=== PATIENT | female | born 1965 | race Caucasian/White ===

== ENCOUNTER → 2025-01-04 | Outpatient (CLI) | payer BC, SELFPAY ==
--- NOTE | 2025-01-04 14:26 | US_ITS ---
PROCEDURE: EXT NON VASC LIMITED/SOFT TISS 01/04/2025 REASON FOR EXAM: PAIN LT AND RT FOOT, NEUROMA RT ANAD LT TECHNIQUE: Ultrasound targeted to the palpable abnormality at the plantar surface of the right foot . COMPARISON: None. FINDINGS: Limited sonogram of the plantar surface of the right foot was performed. No abnormal solid or cystic structure is seen within the visualized area. No definitive palpable lump was reported by the applied technologist. US/Ext Non Vasc Limited/Soft Tiss IMPRESSION: Limited sonogram of the plantar surface of the right foot was performed. No abn ormal solid or cystic structure is seen within the visualized area. No definitive palpable lump was reported by the ultrasound te chnologist. Reading Location: [id number]
--- NOTE | 2025-01-04 14:27 | US_ITS ---
PROCEDURE: EXT NON VASC LIMITED/SOFT TISS 01/04/2025 REASON FOR EXAM: PAIN LT AND RT FOOT, NEUROMA RT ANAD LT TECHNIQUE: Ultrasound targeted to the palpable abnormality at the plantar surface of the left foot. COMPARISON: None. FINDINGS: Targeted sonogram of the plantar surface of the left foot was performed. No palpable lump was reported per the stone layer. No abnormal cystic or solid lesions are seen within the visualized (in the area of concern) on the plantar surface of the left foot. US/Ext Non Vasc Limited/Soft Tiss IMPRESSION: Targeted sonogram of the plantar surface of the left foot was performed. No pal pable lump was reported per the stone layer. No abnormal cystic or solid lesions are seen within the visualized (in the area of concern) on the plantar surface of the left foot. Reading Location: [id number]
== END | disposition home or self-care (01) ==
PROVIDERS: Referring Provider Podiatrist Foot & Ankle Surgery; Visit Provider Podiatrist Foot & Ankle Surgery
DX: M79.672 Pain in left foot (principal); M79.671 Pain in right foot; G57.63 Lesion of plantar nerve, bilateral lower limbs
CPT/HCPCS: 76882

== ENCOUNTER → 2025-02-12 | Outpatient (CLI) | payer BC, SELFPAY ==
[2025-02-12 18:01] LABS: Hepatitis B Surface Antibody Nonreactive
[2025-02-12 18:14] LABS: ALB/GLOB Ratio 1.7 RATIO (0.9-2.4); AST(SGOT) 20 U/L (<=31); Alanine Aminotransfer ALT/SGPT 17 U/L (<=34); Albumin, Serum 4.7 g/dL (3.5-5.0); Alkaline Phosphatase 54 U/L (35-104); Anion Gap 13 (5-15); BUN 20 mg/dL (4-19); BUN/Creat Ratio 24.1 RATIO (10-20); Chloride 101 mmol/L (98-108); Creatinine, Serum 0.81 mg/dL (0.70-1.20); EST Glomerular Filtration Rate 84 (>60); Globulin 2.8 g/dL (2.2-4.2); Glucose 79 mg/dL (70-99); Hepatitis B Surface Antigen Nonreactive (Nonreactive); Hepatitis C Antibody Nonreactive (Nonreactive); Potassium 3.6 mmol/L (3.3-5.1); Protein, Total 7.5 g/dL (5.9-8.4); Sodium Level 139 mmol/L (133-145); Total Bilirubin 0.47 mg/dL (0.00-1.30)
[2025-02-12 18:30] LABS: CRP < 3.00 mg/L (0.0-3.0)
[2025-02-12 18:54] LABS: Absolute Lymphocyte Count 2.17 X10^3/uL (0.83-4.51); Absolute Neutrophil Count 4.1 X10^3/uL (2.0-7.7); Basophil# 0.03 X10^3/uL; Basophil% 0.4 % (0-1); Eosinophils% 1.4 % (0-5); Hematocrit 41.4 % (37-47); Hemoglobin 13.8 g/dL (12.0-15.0); Lymphocyte # 2.17 X10^3/ul (0.83-4.51); Lymphocyte % 31.4 % (19-41); Mean Corp Hgb Conc 33.3 g/dL (32-36); Mean Corpuscular Hgb 29.6 pg (27.0-32.0); Mean Corpuscular Volume 88.7 fL (81-99); Mean Platelet Vol. 10.2 fl (6.2-12.0); Monocyte# 0.47 X10^3/uL; Monocyte% 6.8 % (0-10); NRBC Flagged by Analyzer 0 % (0-5); Neutrophil # 4.13 X10^3/uL (2.7-7.7); Neutrophil % 59.9 % (47-70); Platelet Count 272 K/mm3 (150-450); RBC Distribution Width CV 12.8 % (11.6-14.6); RBC Distribution Width SD 41.3 fl (35.1-43.9); Red Blood Count 4.67 M/mm3 (4.2-5.4); White Blood Count 6.9 K/mm3 (4.4-11.0)
[2025-02-12 18:58] LABS: Erythrocyte Sedimentation Rate 2 mm/hr (0-30)
[2025-02-15 12:08] LABS: ANTINUCLEAR ANTIBODIES DIRECT Negative (Negative)
[2025-02-15 14:08] LABS: CCP IgG Antibodies > 250 units (0-19)
== END | disposition home or self-care (01) ==
LOC: MTLAB 15:10
PROVIDERS: Referring Provider Internal Medicine Rheumatology; Visit Provider Internal Medicine Rheumatology
DX: M05.79 Rheumatoid arthritis with rheumatoid factor of multiple sites without organ or systems involvement (principal)
CPT/HCPCS: 36415; 80053; 85025; 85652; 86038; 86140; 86200; 86431; 86706; 86803; 87340

== ENCOUNTER → 2025-04-30 | Outpatient (CLI) | payer BC, SELFPAY ==
[2025-04-30 17:44] LABS: Hematocrit 40.1 % (37-47); Hemoglobin 13.5 g/dL (12.0-15.0); Immature Granulocytes Count 0.010 X10^3/uL (0.0-0.0); Mean Corp Hgb Conc 33.7 g/dL (32-36); Mean Corpuscular Volume 90.5 fL (81-99); Mean Platelet Vol. 9.9 fl (6.2-12.0); NRBC Flagged by Analyzer 0 % (0-5); Platelet Count 288 K/mm3 (150-450); RBC Distribution Width CV 13.0 % (11.6-14.6); RBC Distribution Width SD 42.6 fl (35.1-43.9); Red Blood Count 4.43 M/mm3 (4.2-5.4); White Blood Count 6.5 K/mm3 (4.4-11.0)
--- OUTSIDE RECORDS SUMMARY | 2025-04-30 18:11 | XMS RPT_ITS | CCD ---
Author Organization [facility] Care Team Providers Care Deputy United [place] Marshal Name Role Phone Leon GUY, Dr. Cam Attending Provider Leon GUY, Dr. Cam Referring Provider Care Physician, No Primary Primary Care Provider Unavailable Unavailable Primary Care Provider Kenna Flaherty MD, Dr. Abbasi Attending Provider Reynold BAEZ, Dr. Abbasi Referring Provider Care Physician, No Primary Primary Care Unava ilAyleen Larson Referring Unavailable Ayleen Flaherty Attending Unavailable Tutu Quintero Referring Unavailable Tutu Quintero Attending Unavailable Care Physician, No Primary Primary Care Unava ilTAMEKA Garcia Attending Unavailable TAMEKA DICKEY Referring Unavailable TAMEKA DICKEY Referring Unavailable Allergies Allergy Classification Reported Allergen(s) Allergy Type Date of Onset Reaction(s) Facility (5 sources) Codeine; Translations: [CODEINE] Drug Allergy 01-15-2025 Other: See Comments [facility] Medications Current Medications Medication Drug Class(es) Dates Sig (Normalized) Sig (Original) cholecalciferol, vitD3,/vit K2 (VITAMIN D3-VITAMIN K2 ORAL) (4 sources) cholecalciferol, vitD3,/vit K2 (VITAMIN D3-VITAMIN K2 ORAL) Take by mouth. Active Ibuprofen (4 sources) Nonsteroidal Anti-inflammatory Drug IBUPROFEN ORAL Ta ke by mouth. Active Magnesium glycinate (4 sources) MAGNESIUM GLYCIN ATE ORAL Take by mouth. Active omega-3s/dha/epa/fis h oil (OMEGA 3 ORAL) (4 sources) omega-3s/dha/epa /fis h oil (OMEGA 3 ORAL) Take 1,200 mg by mouth once daily. Active OTC PRODUCT (4 sources) OTC PRODUCT Tumeric/curcumin Active pyridoxine HCl, vitamin B6, (VITAMIN B-6 ORAL) (4 sources) pyridoxine HCl, vitamin B6, (VITAMIN B-6 ORAL) Take by mouth. Active SELENIUM ORAL (4 sources) SELENIUM ORAL Ta ke by mouth. Active thiamine 250 mg oral tablet (4 sources) thiamine HCl (VITAMIN B-1 ORAL) Take 250 mg by mouth. Active Problems Problem Classification Problem Date Documented Date Episodic/Chronic Menopausal disorders (6 sources) Postmenopausal bleeding; Translations: [Postmenopausal bleeding] Onset: 01-15-2025 01-15-2025 Chronic Other connective tissue disease (1 source) Pain in left foot; Translations: [Pain in left foot] Onset: 02-24-2025 Episodic Other screening for suspected conditions (not mental disorders or infectious disease) (5 sources) Patient encounter status; Translations: [Encounter for screening for malignant neoplasm of cervix] Onset: 01-15-2025 01-15-2025 Episodic Other skin disorders (1 source) Night sweats; Translations: [Generalized hyperhidrosis] 01-15-2025 Episodic Residual codes; unclassified (1 source) Flushing; Translations: [Flushing] 01-15-2025 Episodic Rheumatoid arthritis and related disease (1 source) Rheumatoid arthritis with rheumatoid factor of multiple sites without organ or systems involvement; Translations: [Rheumatoid arthritis with rheumatoid factor of multiple sites without organ or systems involvement] Onset: 02-18-2025 Chronic Unclassified (1 source) Patient encounter status 01-15-2025 Results Test Name Value Interpretation Reference Range Facility US [facility] 03-01-2025 Indication Postmenopausal bleeding Impression Anteverted fibroid uterus that measures 112 mm x 58 mm x 67 mm. The largest fibroids are described below. Fibroid(s): Size 5 mm x 5 mm x 9 mm. Mean 6.2 mm. Vol 0.112 cm . Right lateral anterior wall. intramural Endometrium measures 3.9 mm. Normal endometrial contour. Both ovaries are visualized and appear atrophic. No adnexal masses were observed. There is no free fluid visualized in the peritoneal cavity. Recommendations Follow up as clinically indicated. Menstrual History Cycle: menopausal Method Transabdominal, transvaginal, 3D ultrasound examination, Color Doppler examination. View: Suboptimal view: restricted by increased bowel gas Uterus Uterus: Visualized Uterus position: anteverted Description of uterine malformations: none Myometrium: heterogeneous Endometrium: normal Cervix details: normal Uterus length 112 mm Uterus width 67 mm Uterus height 58 mm Uterus Vol 226.5 cm Endometrial thickness, total 3.9 mm Fibroids: Fibroids identified Uterine fibroid D1 5 mm Uterine fibroid D2 5 mm Uterine fibroid D3 9 mm Uterine fibroid mean 6.2 mm Uterine fibroid vol 0.112 cm Uterine fibroids findings: Right lateral anterior wall. intramural Right Ovary Rt ovary: suboptimal Rt ovary morphology: postmenopausal atrophic Rt ovary D1 12 mm Rt ovary D2 14 mm Rt ovary D3 10 mm Rt ovary Vol 0.9 cm Left Ovary Lt ovary: Visualized Lt ovary morphology: postmenopausal atrophic Lt ovary D1 15 mm Lt ovary D2 16 mm Lt ovary D3 13 mm Lt ovary Vol 1.6 cm Cul de Sac Visualized. no free fluid visualized Performed By: Lilly Stone RDMS Read By: Juanis An M.D. MATERNAL MEDICINE [facility] LESLY SCREENING W TOMOon 02-26 LESLY SCREENING W VIOLA * * *Final Report* * * DATE OF EXAM: Feb 26 2025 9:37AM [facility] 0582 - LESLY SCREENING W VIOLA / PROCEDURE REASON: Encounter for screening mammogram for breast cancer * * * * Physician Interpretation * * * * RESULT: [place] [address] #[id number] - LESLY SCREENING W VIOLA HISTORY: 59 year-old patient presents for screening. Patient is asymptomatic in both breasts. Patient states no personal history of breast cancer. COMPARISON STUDIES: The present examination has been compared to prior imaging studies dated 01/07/2017 (mammogram), 04/30/2019 (mammogram), 06/16/2020 (mammogram), 09/28/2021 (mammogram) and 02/13/2023 (mammogram). MAMMOGRAM TECHNIQUE: The study was acquired using full field digital technology and interpreted from soft copy. Digital Breast Tomosynthesis (DBT) images were obtained and used to assist in the interpretation of this examination. MAMMOGRAM FINDINGS: The breasts are heterogeneously dense, which may obscure small masses. No suspicious masses, calcifications or other abnormalities are seen in either breast. There are no significant interval changes. IMPRESSION: There is no mammographic evidence of malignancy in either breast. Routine screening mammogram is recommended. Annual mammogram will be due in 1 year. BI-RADS Category 1: Negative RISK: Based on the Tyrer-Cuzick (TC) risk assessment model, this patient has a 7.2% lifetime risk of developing breast cancer, meaning they are at average risk for developing breast cancer. However, this is only an estimate based on available history provided on the patient's questionnaire. We encourage all patients to talk with their providers about these results, further recommendations for managing breast health, and appropriate supplemental screening options if the patient has dense breast tissue. Interpreting Radiologist: Arelis Kaufman M.D. Electronically signed on: 03/19/2025 Poultry Picking Machine Tender: BRAD Transcribe Date/Time: Feb 26 2025 9:26A Dictated by: ARELIS KAUFMAN MD This examination was interpreted and the report reviewed and electronically signed by: ARELIS KAUFMAN MD on Mar 19 2025 7:30AM EST [id number] Normal [facility] US [facility] 02-26-2025 Radiology Study observation (narrative) [facility] ANTINUCLEAR ANTIBODIES DIREC Ton 02-15-2025 KEVIN,DIRECT Negative Normal Negative [facility] Comment on above: Result Comment: Perf ormed at: [employer] [id number] Soldering Machine Operator Helper: Boom Narayanan PhD, Phone: [phone] Performed By: #### L 501.6710, L100.0100, L3890.6301, L3890.6102, L101.9900, L505.7010, L500.4050, L4600.0100, L3100.5475, L3890.6202 ####[facility] [id number] [place], [place], [id number] CCP IgG Antibodieson 025 CCP IgG Ab. > 250 High 0-19 [facility] Comment on above: Result Comment: Nega tive <20 Weak positive 20 - 39 Moderate positive 40 - 59 Strong positive >59 Performed at: [employer] [id number] Soldering Machine Operator Helper: Boom Narayanan PhD, Phone: [phone] Performed By: #### L 501.6710, L100.0100, L3890.6301, L3890.6102, L101.9900, L505.7010, L500.4050, L4600.0100, L3100.5475, L3890.6202 ####[facility] [id number] [place], [place], [id number] Absolute lymphocyte countOrd ered By: Ayleen Flaherty on 02-12-2025 Lymphocytes Auto (Unsp spec) [#/Vol] 2.17 10*3/uL 0.83-4.51 [facility] Absolute neutrophil countOrd ered By: Ayleen Flaherty on 02-12-2025 Neutrophils (Bld) [#/Vol] 4.1 10*3/uL 2.0-7.7 [facility] Anion gap in Serum or Plasma Ordered By: Ayleen Flaherty on 02-12-2025 Anion gap [Moles/Vol] 13 mmol/L 5-15 [facility] Automated lymphocyte count a s percentage of total leukocytesOrdered By: Ayleenang Flaherty on 02-12-2025 Lymphocytes/100 WBC Auto (Unsp spec) 31.4 % 19-41 [facility] BUN/creatinine ratioOrdered By: [facility] Reynold on 02-12-2025 Urea nitrogen/Creatinine [Mass ratio] 24.1 mg/mg High 10-20 [facility] Basophil percentageOrdered B y: Ayleen Flaherty on 02-12-2025 Basophils/100 WBC (Bld) 0.4 % 0-1 [facility] Bilirubin, totalOrdered By: Ayleen Flaherty on 02-12-2025 Bilirubin [Mass/Vol] 0.47 mg/dL 0.00-1.30 [facility] CBC W/Diff, Automatedon 01-31 Absolute Lymph 2.17 X10 3/uL Normal 0.83-4.51 [facility] Comment on above: Performed By: #### L 501.6710, L100.0100, L3890.6301, L3890.6102, L101.9900, L505.7010, L500.4050, L4600.0100, L3100.5475, L3890.6202 #### [facility] [address] [place], [place], [id number] (914) Absolute Neut 4.1 X10 3/uL Normal 2.0-7.7 [facility] Comment on above: Performed By: #### L 501.6710, L100.0100, L3890.6301, L3890.6102, L101.9900, L505.7010, L500.4050, L4600.0100, L3100.5475, L3890.6202 #### [facility] [address] [place], [address] (247) Basophils/100 WBC (Bld) 0.4 % Normal 0-1 [facility] Comment on above: Performed By: #### L 501.6710, L100.0100, L3890.6301, L3890.6102, L101.9900, L505.7010, L500.4050, L4600.0100, L3100.5475, L3890.6202 #### [facility] [address] [place], [address] Eosinophils/100 WBC (Bld) 1.4 % Normal 0-5 [facility] Comment on above: Performed By: #### L 501.6710, L100.0100, L3890.6301, L3890.6102, L101.9900, L505.7010, L500.4050, L4600.0100, L3100.5475, L3890.6202 #### [facility] [address] [place], [address] Erythrocyte distribution width (RBC) [Ratio] 12.8 % Normal 11.6-14.6 [facility] Comment on above: Performed By: #### L 501.6710, L100.0100, L3890.6301, L3890.6102, L101.9900, L505.7010, L500.4050, L4600.0100, L3100.5475, L3890.6202 #### [facility] [address] [place], [address] Hematocrit (Bld) [Volume fraction] 41.4 % Normal 37-47 [facility] Comment on above: Performed By: #### L 501.6710, L100.0100, L3890.6301, L3890.6102, L101.9900, L505.7010, L500.4050, L4600.0100, L3100.5475, L3890.6202 #### [facility] [address] [place], [address] Hemoglobin (Bld) [Mass/Vol] 13.8 g/dL Normal 12.0-15.0 [facility] Comment on above: Performed By: #### L 501.6710, L100.0100, L3890.6301, L3890.6102, L101.9900, L505.7010, L500.4050, L4600.0100, L3100.5475, L3890.6202 #### [facility] [address] [place], [address] IG% 0.100 Normal 0.0-0.9 [facility] Comment on above: Result Comment: IG% - Immature Granulocytes (promyelocytes, myelocytes and metamyelocytes) > 1% indicates that a LEFT SHIFT is Present. Performed By: #### L 501.6710, L100.0100, L3890.6301, L3890.6102, L101.9900, L505.7010, L500.4050, L4600.0100, L3100.5475, L3890.6202 #### [facility] [address] [place], [address] Lymphocytes/100 WBC (Bld) 31.4 % Normal 19-41 [facility] Comment on above: Performed By: #### L 501.6710, L100.0100, L3890.6301, L3890.6102, L101.9900, L505.7010, L500.4050, L4600.0100, L3100.5475, L3890.6202 #### [facility] [address] [place], [address] MCH (RBC) [Entitic mass] 29.6 pg Normal 27.0-32.0 [facility] Comment on above: Performed By: #### L 501.6710, L100.0100, L3890.6301, L3890.6102, L101.9900, L505.7010, L500.4050, L4600.0100, L3100.5475, L3890.6202 #### [facility] [address] [place], [address] MCHC (RBC) [Mass/Vol] 33.3 g/dL Normal 32-36 [facility] Comment on above: Performed By: #### L 501.6710, L100.0100, L3890.6301, L3890.6102, L101.9900, L505.7010, L500.4050, L4600.0100, L3100.5475, L3890.6202 #### [facility] [address] [place], [address] MCV (RBC) [Entitic vol] 88.7 fL Normal 81-99 [facility] Comment on above: Performed By: #### L 501.6710, L100.0100, L3890.6301, L3890.6102, L101.9900, L505.7010, L500.4050, L4600.0100, L3100.5475, L3890.6202 #### [facility] [address] [place], [address] Monocytes/100 WBC (Bld) 6.8 % Normal 0-10 [facility] Comment on above: Performed By: #### L 501.6710, L100.0100, L3890.6301, L3890.6102, L101.9900, L505.7010, L500.4050, L4600.0100, L3100.5475, L3890.6202 #### [facility] [address] [place], [address] Neutrophils/100 WBC (Bld) 59.9 % Normal 47-70 [facility] Comment on above: Performed By: #### L 501.6710, L100.0100, L3890.6301, L3890.6102, L101.9900, L505.7010, L500.4050, L4600.0100, L3100.5475, L3890.6202 #### [facility] [address] [place], [place], [id number] (008) Nucleated RBC (Bld) [#/Vol] 0 10*3/uL Normal 0-5 [facility] Comment on above: Performed By: #### L 501.6710, L100.0100, L3890.6301, L3890.6102, L101.9900, L505.7010, L500.4050, L4600.0100, L3100.5475, L3890.6202 #### [facility] [address] [place], [address] Platelet mean volume (Bld) [Entitic vol] 10.2 fL Normal 6.2-12.0 [facility] Comment on above: Performed By: #### L 501.6710, L100.0100, L3890.6301, L3890.6102, L101.9900, L505.7010, L500.4050, L4600.0100, L3100.5475, L3890.6202 #### [facility] [address] [place], [address] Platelets (Bld) [#/Vol] 272 10*3/uL Normal 150-450 [facility] Comment on above: Performed By: #### L 501.6710, L100.0100, L3890.6301, L3890.6102, L101.9900, L505.7010, L500.4050, L4600.0100, L3100.5475, L3890.6202 #### [facility] [address] [place], [place], [id number] (003) RBC (Bld) [#/Vol] 4.67 10*6/uL Normal 4.2-5.4 [facility] Comment on above: Performed By: #### L 501.6710, L100.0100, L3890.6301, L3890.6102, L101.9900, L505.7010, L500.4050, L4600.0100, L3100.5475, L3890.6202 #### [facility] [address] [place], [address] (319) RDW SD 41.3 fl Normal 35.1-43.9 [facility] Comment on above: Performed By: #### L 501.6710, L100.0100, L3890.6301, L3890.6102, L101.9900, L505.7010, L500.4050, L4600.0100, L3100.5475, L3890.6202 #### [facility] [address] [place], [place], [id number] (728) WBC (Bld) [#/Vol] 6.9 10*3/uL Normal 4.4-11.0 [facility] Comment on above: Performed By: #### L 501.6710, L100.0100, L3890.6301, L3890.6102, L101.9900, L505.7010, L500.4050, L4600.0100, L3100.5475, L3890.6202 #### [facility] [address] [place], [address] CRPon 02-12-2025 C-REACTIVE PROT < 3.00 Normal 0.0-3.0 [facility] Comment on above: Performed By: #### L 501.6710, L100.0100, L3890.6301, L3890.6102, L101.9900, L505.7010, L500.4050, L4600.0100, L3100.5475, L3890.6202 #### [facility] [address] [place], [place], [id number] Carbon dioxide, total [Moles /volume] in Central venous bloodOrdered By: Ayleen Flaherty on 02-12-2025 CO2 [Moles/Vol] 25.0 mmol/L 21.0-32.0 [facility] Chloride assayOrdered By: Chris Flaherty on 02-12-2025 Chloride [Moles/Vol] 101 mmol/L 98-108 [facility] Comprehensive Metabolic Prof ilon 02-12-2025 Albumin [Mass/Vol] 4.7 g/dL Normal 3.5-5.0 [facility] Comment on above: Performed By: #### L 501.6710, L100.0100, L3890.6301, L3890.6102, L101.9900, L505.7010, L500.4050, L4600.0100, L3100.5475, L3890.6202 #### [facility] [address] [place], [place], [id number] Albumin/Globulin [Mass ratio] 1.7 {ratio} Normal 0.9-2.4 [facility] Comment on above: Performed By: #### L 501.6710, L100.0100, L3890.6301, L3890.6102, L101.9900, L505.7010, L500.4050, L4600.0100, L3100.5475, L3890.6202 #### [facility] [address] [place], [place], [id number] ALK PHOS 54 U/L Normal 35-104 [facility] Comment on above: Performed By: #### L 501.6710, L100.0100, L3890.6301, L3890.6102, L101.9900, L505.7010, L500.4050, L4600.0100, L3100.5475, L3890.6202 #### [facility] [address] [place], [place], [id number] (039) ALT [Catalytic activity/Vol] 17 U/L Normal <=34 [facility] Comment on above: Performed By: #### L 501.6710, L100.0100, L3890.6301, L3890.6102, L101.9900, L505.7010, L500.4050, L4600.0100, L3100.5475, L3890.6202 #### [facility] [address] [place], [address] AST [Catalytic activity/Vol] 20 U/L Normal <=31 [facility] Comment on above: Performed By: #### L 501.6710, L100.0100, L3890.6301, L3890.6102, L101.9900, L505.7010, L500.4050, L4600.0100, L3100.5475, L3890.6202 #### [facility] [address] [place], [address] Bilirubin [Mass/Vol] 0.47 mg/dL Normal 0.00-1.30 [facility] Comment on above: Performed By: #### L 501.6710, L100.0100, L3890.6301, L3890.6102, L101.9900, L505.7010, L500.4050, L4600.0100, L3100.5475, L3890.6202 #### [facility] [address] [place], [place], [id number] BUN/CRE 24.1 RATIO High 10-20 [facility] Comment on above: Performed By: #### L 501.6710, L100.0100, L3890.6301, L3890.6102, L101.9900, L505.7010, L500.4050, L4600.0100, L3100.5475, L3890.6202 #### [facility] [address] [place], [address] Calcium [Mass/Vol] 10.0 mg/dL Normal 7.6-11.0 [facility] Comment on above: Performed By: #### L 501.6710, L100.0100, L3890.6301, L3890.6102, L101.9900, L505.7010, L500.4050, L4600.0100, L3100.5475, L3890.6202 #### [facility] [address] [place], [place], [id number] (738) Chloride [Moles/Vol] 101 mmol/L Normal 98-108 [facility] Comment on above: Performed By: #### L 501.6710, L100.0100, L3890.6301, L3890.6102, L101.9900, L505.7010, L500.4050, L4600.0100, L3100.5475, L3890.6202 #### [facility] [address] [place], [address] CO2 [Moles/Vol] 25.0 mmol/L Normal 21.0-32.0 [facility] Comment on above: Performed By: #### L 501.6710, L100.0100, L3890.6301, L3890.6102, L101.9900, L505.7010, L500.4050, L4600.0100, L3100.5475, L3890.6202 #### [facility] [address] [place], [address] Creatinine [Mass/Vol] 0.81 mg/dL Normal 0.70-1.20 [facility] Comment on above: Performed By: #### L 501.6710, L100.0100, L3890.6301, L3890.6102, L101.9900, L505.7010, L500.4050, L4600.0100, L3100.5475, L3890.6202 #### [facility] [address] [place], [place], [id number] GAP 13 Normal 5-15 [facility] Comment on above: Performed By: #### L 501.6710, L100.0100, L3890.6301, L3890.6102, L101.9900, L505.7010, L500.4050, L4600.0100, L3100.5475, L3890.6202 #### [facility] [address] [place], [place], [id number] GFR/1.73 sq M.predicted among non-blacks MDRD (S/P/Bld) [Vol rate/Area] 84 mL/min/{1.73_m2} Normal >[address] [facility] Comment on above: Result Comment: mL/m in/1.73m2 CKD-EPI Creatinine Equation (2020) Performed By: #### L 501.6710, L100.0100, L3890.6301, L3890.6102, L101.9900, L505.7010, L500.4050, L4600.0100, L3100.5475, L3890.6202 #### [facility] [address] [place], [place], [id number] Globulin (S) [Mass/Vol] 2.8 g/dL Normal 2.2-4.2 [facility] Comment on above: Performed By: #### L 501.6710, L100.0100, L3890.6301, L3890.6102, L101.9900, L505.7010, L500.4050, L4600.0100, L3100.5475, L3890.6202 #### [facility] [address] [place], [address] Glucose [Mass/Vol] 79 mg/dL Normal 70-99 [facility] Comment on above: Performed By: #### L 501.6710, L100.0100, L3890.6301, L3890.6102, L101.9900, L505.7010, L500.4050, L4600.0100, L3100.5475, L3890.6202 #### [facility] [address] [place], [address] Potassium [Moles/Vol] 3.6 mmol/L Normal 3.3-5.1 [facility] Comment on above: Performed By: #### L 501.6710, L100.0100, L3890.6301, L3890.6102, L101.9900, L505.7010, L500.4050, L4600.0100, L3100.5475, L3890.6202 #### [facility] [address] [place], [address] Sodium [Moles/Vol] 139 mmol/L Normal 133-145 [facility] Comment on above: Performed By: #### L 501.6710, L100.0100, L3890.6301, L3890.6102, L101.9900, L505.7010, L500.4050, L4600.0100, L3100.5475, L3890.6202 #### [facility] [address] [place], [address] T PROT 7.5 g/dL Normal 5.9-8.4 [facility] Comment on above: Performed By: #### L 501.6710, L100.0100, L3890.6301, L3890.6102, L101.9900, L505.7010, L500.4050, L4600.0100, L3100.5475, L3890.6202 #### [facility] [address] [place], [place], [id number] Urea nitrogen [Mass/Vol] 20 mg/dL High 4-19 [facility] Comment on above: Performed By: #### L 501.6710, L100.0100, L3890.6301, L3890.6102, L101.9900, L505.7010, L500.4050, L4600.0100, L3100.5475, L3890.6202 #### [facility] [address] [place], [place], [id number] Eosinophil percentageOrdered By: Ayleen Flaherty on 02-12-2025 Eosinophils/100 WBC (Bld) 1.4 % 0-5 [facility] Erythrocyte Sed Rateon 02-12 SED RATE 2 mm/hr Normal 0-30 [facility] Comment on above: Performed By: #### L 501.6710, L100.0100, L3890.6301, L3890.6102, L101.9900, L505.7010, L500.4050, L4600.0100, L3100.5475, L3890.6202 #### [facility] [address] [place], [place], [id number] Erythrocyte distribution wid th ratioOrdered By: Ayleen Flaherty on 02-12-2025 Erythrocyte distribution width (RBC) [Ratio] 12.8 % 11.6-14.6 [facility] Erythrocyte distribution wid th standard deviationOrdered By: Ayleen Flaherty on 02-12-2025 Erythrocyte distribution width (RBC) [Ratio] 41.3 fl 35.1-43.9 [facility] Erythrocyte sedimentation ra teOrdered By: Ayleen Flaherty on 02-12-2025 ESR (Bld) [Velocity] 2 mm/h 0-30 [facility] Glomerular filtration rate ( GFR) estimation/1.73 sq m using serum, plasma, or whole bOrdered By: Ayleen Flaherty on 02-12-2025 GFR/1.73 sq M.predicted among non-blacks MDRD (S/P/Bld) [Vol rate/Area] 84 mL/min/{1.73_m2} >[address] [facility] Comment on above: mL/min/1.73m2 CKD-EP I Creatinine Equation (2020) Hematocrit Auto (Bld) [Volum e fraction]Ordered By: Ayleen Flaherty on 02-12-2025 Hematocrit (Bld) [Volume fraction] 41.4 % 37-47 [facility] Hemoglobin measurementOrdere d By: Ayleen Flaherty on 02-12-2025 Hemoglobin (Bld) [Mass/Vol] 13.8 g/dL 12.0-15.0 [facility] Hepatitis B Surface Antibody on 02-12-2025 HEP B Surf Ab Non-Reactive Normal [facility] Comment on above: Result Comment: <8.5 mIU/mL: Non-Reactive 8.5<= x <11.5 mIU/mL: Indeterminate >=11.5 mIU/mL: Reactive Non Reactive: Inconsistent with immunity less than <10 mIU/mL Reactive: Consistent with immunity greater than or equal to 10 mIU/mL Performed By: #### L 501.6710, L100.0100, L3890.6301, L3890.6102, L101.9900, L505.7010, L500.4050, L4600.0100, L3100.5475, L3890.6202 #### [facility] [place], [address] Hepatitis C Antibodyon 02-12 Hepatitis C Ab Non-Reactive Normal Nonreactive [facility] Comment on above: Result Comment: Reac tive: Presumptive evidence of antibodies to HCV. Follow CDC recommendations for supplemental testing. Non-Reactive: Antibodies to HCV were not detected; does not exclude the possibility of exposure to HCV Reactive Results are presumptive evidence of antibodies to HCV. Follow CDC recommendations for supplemental testing. Order confirmation testing: HCV Quant by PCR testing - HCVPCR #[id number] Non Reactive: < 0.8 Equivocal: >/= 0.8 to < 1.0 Reactive: >/= 1.0 The CDC requires that a reactive/equivocal HCV antibody result be sent out for confirmation. HCV Quant by PCR testing. Performed By: #### L 501.6710, L100.0100, L3890.6301, L3890.6102, L101.9900, L505.7010, L500.4050, L4600.0100, L3100.5475, L3890.6202 #### [facility] [address], [place], [id number] Immature granulocytes/100 WB C Auto (Bld)Ordered By: Ayleen Flaherty on 02-12-2025 Immature granulocytes/100 WBC (Bld) 0.100 % 0.0-0.9 [facility] Comment on above: IG% - Immature Granu locytes (promyelocytes, myelocytes and metamyelocytes) > 1% indicates that a LEFT SHIFT is Present. L3890.6102on 02-12-2025 HEP B Surf Ag Non-Reactive Normal Nonreactive [facility] Comment on above: Result Comment: Reac tive: Presumptive evidence of HBV. Repeatedly reactive samples must be confirmed using a neutralization test ([employer] HBsAg Confirmatory Test) Non-Reactive: HBsAg not detected; does not exclude the possibility of exposure to HBV Performed By: #### L 501.6710, L100.0100, L3890.6301, L3890.6102, L101.9900, L505.7010, L500.4050, L4600.0100, L3100.5475, L3890.6202 #### [facility] [address] [place], [place], [id number] Laboratory - Chemistry and C hemistry - challengeOrdered By: Ayleen Flaherty on 02-12-2025 AST [Catalytic activity/Vol] 20 U/L <32 [facility] - Microbiology an d Antimicrobial susceptibilityOrdered By: Ayleen Flaherty on 02-12-2025 HBV surface Ag Ql (S) Non-Reactive Nonreactive [facility] Comment on above: Reactive: Presumptiv e evidence of HBV. Repeatedly reactive samples must be confirmed using a neutralization test ([employer] HBsAg Confirmatory Test)Non-Reactive: HBsAg not detected; does not exclude the possibility of exposure to HBV MCV (mean corpuscular volume ) determinationOrdered By: Ayleen Flaherty on 02-12-2025 MCV (RBC) [Entitic vol] 88.7 fL 81-99 [facility] Mean corpuscular hemoglobin (MCH) determinationOrdered By: Ayleen Flaherty on 02-12-2025 MCH (RBC) [Entitic mass] 29.6 pg 27.0-32.0 [facility] Mean corpuscular hemoglobin concentration (MCHC) determinationOrdered By: Ayleen Flaherty on 02-12-2025 MCHC (RBC) [Mass/Vol] 33.3 g/dL 32-36 [facility] Mean platelet volume determi nationOrdered By: Ayleen Flaherty on 02-12-2025 Platelet mean volume (Bld) [Entitic vol] 10.2 fL 6.2-12.0 [facility] Monocyte percentageOrdered B y: Ayleen Flaherty on 02-12-2025 Monocytes/100 WBC (Bld) 6.8 % 0-10 [facility] Neutrophil percentageOrdered By: Ayleen Flaherty on 02-12-2025 Neutrophils/100 WBC (Bld) 59.9 % 47-70 [facility] Nucleated red blood cell per centageOrdered By: Ayleen Flaherty on 02-12-2025 Nucleated RBC/100 WBC (Bld) [Ratio] 0 % 0-5 [facility] Platelet countOrdered By: Chris Flaherty on 02-12-2025 Platelets (Bld) [#/Vol] 272 10*3/uL 150-450 [facility] Potassium measurement (mass/ volume)Ordered By: Ayleen Flaherty on 02-12-2025 Potassium (Unsp spec) [Mass/Vol] 3.6 mmol/L 3.3-5.1 [facility] RBC Auto (Bld) [#/Vol]Ordere d By: Ayleen Flaherty on 02-12-2025 RBC (Bld) [#/Vol] 4.67 10*6/uL 4.2-5.4 [facility] Rheumatoid Factoron 02-13-20 25 RHEUMATOID FAC 178.0 IU/mL High <15 [facility] Comment on above: Performed By: #### L 501.6710, L100.0100, L3890.6301, L3890.6102, L101.9900, L505.7010, L500.4050, L4600.0100, L3100.5475, L3890.6202 #### [facility] [place], [address] Serum creatinine measurement (mass/volume)Ordered By: Ayleen Flaherty on 02-12-2025 Creatinine [Mass/Vol] 0.81 mg/dL 0.70-1.20 [facility] Serum globulin measurementOr dered By: Ayleen Flaherty on 02-12-2025 Globulin (S) [Mass/Vol] 2.8 g/dL 2.2-4.2 [facility] Serum glucose measurement (m ass/volume)Ordered By: Ayleen Flaherty on 02-12-2025 Glucose [Mass/Vol] 79 mg/dL 70-99 [facility] Serum hepatitis B virus surf page antibody detectionOrdered By: Ayleen Flaherty on 02-12-2025 HBV surface Ab Ql (S) Non-Reactive [facility] Comment on above: <8.5 mIU/mL: Non-Bethany ctive8.5<= x <11.5 mIU/mL: Indeterminate>=11.5 mIU/mL: Reactive Non Reactive: Inconsistent with immunity less than <10 mIU/mL Reactive: Consistent with immunity greater than or equal to 10 mIU/mL Serum or plasma C reactive p rotein measurement (mass/volume)Ordered By: Ayleen Flaherty on 02-12-2025 CRP [Mass/Vol] mg/L 0.0-3.0 [facility] Serum or plasma alanine hernández otransferase (ALT) measurementOrdered By: Ayleen Flaherty on 02-12-2025 ALT [Catalytic activity/Vol] 17 U/L <35 [facility] Serum or plasma albumin beau urement (mass/volume)Ordered By: Ayleen Flaherty on 02-12-2025 Albumin [Mass/Vol] 4.7 g/dL 3.5-5.0 [facility] Serum or plasma albumin/glob ulin mass ratioOrdered By: Ayleen Flaherty on 02-12-2025 Albumin/Globulin [Mass ratio] 1.7 {ratio} 0.9-2.4 [facility] Serum or plasma alkaline rico sphatase measurementOrdered By: Ayleen Flaherty on 02-12-2025 ALP [Catalytic activity/Vol] 54 U/L 35-104 [facility] Serum or plasma calcium beau urement (mass/volume)Ordered By: Ayleen Flaherty on 02-12-2025 Calcium [Mass/Vol] 10.0 mg/dL 7.6-11.0 [facility] Serum or plasma cyclic citru llinated peptide IgG antibody assay (units/volume)Ordered By: Ayleen Flaherty on 02-12-2025 Cyclic citrullinated peptide IgG Qn > 250 units High 0-19 [facility] Comment on above: Negative <20 Weak po sitive 20 - 39 Moderate positive 40 - 59 Strong positive >59Performed at: [facility] [place] [id number] Director: Boom Narayanan PhD, Phone: [phone] Serum or plasma urea nitroge n measurement (mass/volume)Ordered By: Ayleen Flaherty on 02-12-2025 Urea nitrogen [Mass/Vol] 20 mg/dL High 4-19 [facility] Serum rheumatoid factor dete ctionOrdered By: Ayleen Flaherty on 02-12-2025 Rheumatoid factor Ql (S) 178.0 IU/mL High <15 [facility] Sodium levelOrdered By: Elias Flaherty on 02-12-2025 Sodium [Moles/Vol] 139 mmol/L 133-145 [facility] Total proteinOrdered By: Bridgette Flaherty on 02-12-2025 Protein [Mass/Vol] 7.5 g/dL 5.9-8.4 [facility] White blood cell (WBC) count Ordered By: Ayleen Flaherty on 02-12-2025 WBC (Bld) [#/Vol] 6.9 10*3/uL 4.4-11.0 [facility] CNOVon 01-15-2025 CNOV Office Visit (OBGYWM) ---- BILLIE BRUNSON ([id number]) 1965 F Date Time Provider Department 01/15/25 9:15 AM TAMEKA DICKEY During your visit today, we recorded the following information about you: Blood pressure Weight Height Last Period 128/70 74.4 kg 1.73 m 04/19/23 Tameka Dickey APRN.[facility] 01/15/2025 9:56 AM Signed Die Casting Supervisor offered: Patient declines. Billie Brunson is a 59 year old female who presents for problem visit of postmenopausal bleeding. Recently relocated from [place]. Has 3 year old and 9 year old grand daughters. HPI: Sammi had postmenopausal bleeding December 05-. Bleeding was light, but more than spotting. Denies pelvic pain. Chronic back pain. LMP April 2023. Has done pellet therapy in the past. Stopped using it May 2024. Was on progesterone during this. Experiences hot flashes and night sweats, as well as low energy. Night sweats are coming back, but not as severe as they were. OB History Gravida3 Para2 Term0 Preterm0 AB1 Living2 SAB0 IAB0 Ectopic0 Multiple0 Live Births0 Operations Examiner History LMP: 04/19/2023, Postmenopausal Age at Menarche: 16 Age at First : Age at Menopause: Operations Examiner History Comments: Sexual Activity: Yes; Male Contraception: Vasectomy History reviewed. No pertinent past medical history. History reviewed. No pertinent surgical history. FAMILY HISTORY Problem Relation Age of Onset Lung Cancer Mother Heart Attack Father No Known Problems Sister Heart Attack Brother Pancreatic Cancer Brother Colon Cancer Maternal Grandmother 60 Cancer Maternal Grandfather No Known Problems Paternal Grandmother Emphysema Paternal Grandfather Social History Tobacco Use Smoking status: Never Smokeless tobacco: Never Vaping Use Vaping status: Never Used Substance Use Topics Alcohol use: Yes Drug use: Never Current Outpatient Medications Medication Sig omega-3s/dha/epa/fi sh oil (OMEGA 3 ORAL) Take 1,200 mg by mouth once daily. cholecalciferol, vitD3,/vit K2 (VITAMIN D3-VITAMIN K2 ORAL) Take by mouth. thiamine HCl (VITAMIN B-1 ORAL) Take 250 mg by mouth. pyridoxine HCl, vitamin B6, (VITAMIN B-6 ORAL) Take by mouth. MAGNESIUM GLYCINATE ORAL Take by mouth. SELENIUM ORAL Take by mouth. OTC PRODUCT Tumeric/curcumin IBUPROFEN ORAL Take by mouth. No current facility-administer ed medications for this visit. Allergies As of Date: 01/15/2025 Allergen Noted Reaction CODEINE 01/15/2025 Other: See Comments Fully Assessed 01/15/2025 REVIEW OF SYSTEMS Expanded ROS: MEDICAL BILLER/CODER: + postmenopausal bleeding Allergies and current medication updated:Yes SENSITIVE EXAM: The sensitive examination was discussed with the Patient or Patient's Authorized Director Revenue. As applicable, any other physician, advance practice provider, medical student, or other health professional student that will be observing or involved in the sensitive examination for educational or training purposes was discussed with the Patient or Authorized Director Revenue. The Patient or Authorized Director Revenue has agreed to proceed with the sensitive examination. (Sensitive examination includes inspection and/or palpation of the breasts, pelvis, prostate and anorectal regions). EXAM: BP 128/70 Ht 5' 8.11 (1.73m) Wt 164 lb (74.4kg) LMP 04/19/2023 BMI 24.86 kg/(m2). GENERAL: pleasant, female in no apparent distress HEENT: Normocephalic, atraumatic, mucus membranes moist, and no lesions CHEST: Normal inspiratory effort PELVIC: external genitalia normal, normal Bartholin's glands, urethra, Cle Elum's glands, no vulvar lesions, no cervical lesions, good vaginal support, physiologic discharge present, normal appearing perineal body and perianal region BIMANUAL: uterus normal size, shape and consistency, no adnexal masses, and non-tender NEURO: alert and oriented x3,exam grossly non-focal EXTREMITIES: normal ASSESSMENT AND PLAN: 1. Postmenopausal bleeding - ICD9: 627.1, ICD10: N95.0 (primary diagnosis) - Pap done - Recommend pelvic ultrasound - Plan for EMB 2. Night sweats - ICD9: 780.8, ICD10: R61 3. Hot flashes - ICD9: 782.62, ICD10: R23.2 - Consider HRT if workup for postmenopausal bleeding is negative 4. Pap smear for cervical cancer screening - ICD9: V76.2, ICD10: Z12.4 - Pap done 5. Encounter for screening mammogram for breast cancer - ICD9: V76.12, ICD10: Z12.31 - LESLY SCREENING W VIOLA Dickey APRN.SANDRA I spent a total of 30 minutes on the date of the service which included preparing to see the patient, [id number] patient care, completing clinical documentation, obtaining and/or reviewing separately obtained history, performing a medically appropriate examination, counseling and educating the patient/family/customer care representative, and ordering medications, tests, or procedures. Allergies As of Date: 01/15/2025 Noted Allergy Reaction (more content not included)... Normal [facility] HIGH RISK HUMAN PAPILLOMA BOOKER (HPV), PCR FOR DETECTION AND GENOTYPINGon 01-15-2025 HPV 16 Ag Ql (Unsp spec) Not detected Normal Not detec mesha [facility] Comment on above: Order Comment: Speci men Type: FLUID SPECIMEN Ordering Facility: [facility] Address: [address] [place] [address] Performed By: #### H PVHRT #### [facility] CLIA [id number] [address] [place] [address] [place] HPV 18 Ag Ql (Unsp spec) Not detected Normal Not detec [facility] Comment on above: Order Comment: Speci men Type: FLUID SPECIMEN Ordering Facility: [facility] Address: [address] [place] [address] Performed By: #### H PVHRT #### [facility] CLIA [id number] [address] [place] [address] [place] HPV 31+33+35+39+45+51+52+56+5 8+59+66+68 DNA PAZ+probe Ql (Cvx) Not detected Normal Not detected [facility] Comment on above: Order Comment: Speci men Type: FLUID SPECIMEN Ordering Facility: [facility] Address: [address] [place] [address] Result Comment: High Risk HPV Other Type includes HPV types 31, 33, 35, 39, 45, 51, 52, 56, 58, 59, 66 and 68. Performed By: #### H PVHRT #### [facility] CLIA [id number] [address] [place] [address] [place] PAP TESTon 01-15-2025 ADEQUACY Normal [facility] Comment on above: Order Comment: Speci men Type: FLUID SPECIMEN Ordering Facility: [facility] Address: [address] [place] [address] Result Comment: Sati sfactory for interpretation. Transformation zone present Performed By: #### L [id number] #### [facility] CLIA [id number] [address] [place] [address] STATES OF [facility] CLIA [id number] [address] [place] [address] [place] CASE REPORT Normal [facility] Comment on above: Order Comment: Speci men Type: FLUID SPECIMEN Ordering Facility: [facility] Address: [address] [place] [address] Result Comment: Gyne cologic Cytology Report Case: [id number] Authorizing Provider: Tameka Dickey APRN.BOMB LOADER Collected: 01/15/2025 09:59 AM Ordering Location: OB/Gynecology Received: 01/15/2025 12:40 PM First Screen: Gmit[place], Brady, CT, ASCP Specimen: Pap Test, ThinPrep, Cervix Performed By: #### L [id number] #### [facility] CLIA [id number] [address] [place] [address] [place] [facility] CLIA [id number] [address] [place] [address] [place] CLINICAL HISTORY, CYTOLOGY, MEDICAL BILLER/CODER Post Menopausal Normal [facility] Comment on above: Order Comment: Speci men Type: FLUID SPECIMEN Ordering Facility: [facility] Address: [address] [place] [address] Performed By: #### L [id number] #### [facility] CLIA [id number] [address] [place] [address] [place] [facility] CLIA [id number] [address] [place] [address] [place] FINAL PERFORMING LAB Normal [facility] Comment on above: Order Comment: Speci men Type: FLUID SPECIMEN Ordering Facility: [facility] Address: [address] [place] [address] Result Comment: Tech nical component, gasfitter screening performed at: [facility], [address] [place] [address] CLIA: [id number] Diagnostic interpretation performed at: [facility], [address] [place] [address] CLIA# [id number] Cigarette Filter Inspector: Anderson Lowery MD Performed By: #### L [id number] #### [facility] CLIA [id number] [address] [place] [address] [place] [facility] CLIA [id number] [address] [place] [address] [place] INTERPRETATION, CYTOLOGY, MEDICAL BILLER/CODER Normal [facility] Comment on above: Order Comment: Speci men Type: FLUID SPECIMEN Ordering Facility: [facility] Address: [address] [place] [address] Result Comment: Nega tive for intraepithelial lesion or malignancy. at 1141 EDT Performed By: #### L [id number] #### [facility] CLIA [id number] [address] [place] [address] [place] [facility] CLIA [id number] [address] [place] [address] [place] PAP DISCLAIMER COMMENT The Pap Smear is a screening test for cervical cancer. False negative results occur with all screening tests, emphasizing the need for rescreening at recommended intervals, and clinical correlation. Normal [facility] Comment on above: Order Comment: Speci men Type: FLUID SPECIMEN Ordering Facility: [facility] Address: [address] [place] [address] Performed By: #### L [id number] #### [facility] CLIA [id number] [address] [place] [address] STATES OF [facility] CLIA [id number] [address] [place] [address] [place] PAP NAIL FEEDER COMMENT This specimen has been analyzed by the FDA-approved Guerrilla RFTM System, which uses digital imaging and an enhanced artificial intelligence image analysis algorithm to identify crump of interest on the microscopic slide, to assist the tool shaper setup operator and pathologist in evaluating cells on ThinPrep Pap tests. Following analysis, crump of interest on the microscopic slide selected by the algorithm are reviewed by a tool shaper setup operator. If a sample requires hierarchical review, the pathologist will review the same crump of interest selected by the algorithm prior to final interpretation. Normal [facility] Comment on above: Order Comment: Speci men Type: FLUID SPECIMEN Ordering Facility: [facility] Address: [address] [place] [address] Performed By: #### L [id number] #### [facility] CLIA [id number] [address] [place] [address] LAB CLIA [id number] [address] [place] [address] [place] Ext Non Vasc Limited/Soft Ti sson 01-04-2025 Ext Non Vasc Limited/Soft Tiss [facility] Imaging Services [address] [place], [place] [id number] Ext Non Vasc Limited/Soft Tiss MR#: [id number] Acct: [id number] Name: SELVIN MENDENHALL CLIFF Rep #: [id number] : 1965 F 59 From: Lonnie De Los Santos i, MD PCP: Care Physician,No Primary Status: REG CLI Study: Ext Non Vasc Limited/Soft Tiss Date of Exam: 0 01/04/25 Exam# [id number] Ordering Dr: Tutu Quintero DPM PROCEDURE: EXT NON VASC LIMITED/SOFT TISS 01/04/2025 REASON FOR EXAM: PAIN LT AND RT FOOT, NEUROMA RT ANAD LT TECHNIQUE: Ultrasound targeted to the palpable abnormality at the plantar surface of the left foot. COMPARISON: None. FINDINGS: Targeted sonogram of the plantar surface of the left foot was performed. No palpable lump was reported per the research program manager. No abnormal cystic or solid lesions are seen within the visualized (in the area of concern) on the plantar surface of the left foot. US/Ext Non Vasc Limited/Soft Tiss IMPRESSION: Targeted sonogram of the plantar surface of the left foot was performed. No palpable lump was reported per the research program manager. No abnormal cystic or solid lesions are seen within the visualized (in the area of concern) on the plantar surface of the left foot. Reading Location: [id number] CC: DPM Dr. Tutu Quintero; No Primary Care Physician Poultry Picking Machine Tender: Signed Normal [facility] Ext Non Vasc Limited/Soft Tiss [facility] Imaging Services [address] [place] [address] Ext Non Vasc Limited/Soft Tiss MR#: [id number] Acct: [id number] Name: SELVIN MENDENHALL CLIFF Rep #: [id number] : 1965 F 59 From: Lonnie De Los Santos i, MD PCP: Care Physician,No Primary Status: REG CLI Study: Ext Non Vasc Limited/Soft Tiss Date of Exam: 0 01/04/25 Exam# [id number] Ordering Dr: Tutu Quintero DPM PROCEDURE: EXT NON VASC LIMITED/SOFT TISS 01/04/2025 REASON FOR EXAM: PAIN LT AND RT FOOT, NEUROMA RT ANAD LT TECHNIQUE: Ultrasound targeted to the palpable abnormality at the plantar surface of the right foot . COMPARISON: None. FINDINGS: Limited sonogram of the plantar surface of the right foot was performed. No abnormal solid or cystic structure is seen within the visualized area. No definitive palpable lump was reported by the cardiovascular radiologic technologist. US/Ext Non Vasc Limited/Soft Tiss IMPRESSION: Limited sonogram of the plantar surface of the right foot was performed. No abnormal solid or cystic structure is seen within the visualized area. No definitive palpable lump was reported by the cardiovascular radiologic technologist. Reading Location: [facility] CC: DPNatalia Quintero; No Primary Care Physician Poultry Picking Machine Tender: Signed Normal [facility] Vital Signs Date Time Vital Sign Value Performing Clinician Berna skip 01-15-2025 09:21-0400 Body height 173 cm Tameka Dickey APRN.BOMB LOADER Work Phone: [facility] 01-15-2025 09:21-0400 Body mass index (BMI) [Ratio] 24.86 kg/m2 Tameka Dickey CALIBRATION TESTER.BOMB LOADER Work Phone: [facility] 01-15-2025 09:21-0400 Body weight 74.39 kg Tameka Dickey CALIBRATION TESTER.BOMB LOADER Work Phone: [facility] 01-15-2025 09:21-0400 Diastolic blood pressure 70 mm[Hg] Tameka Dickey CALIBRATION TESTER.BOMB LOADER Work Phone: [facility] 01-15-2025 09:21-0400 Systolic blood pressure 128 mm[Hg] Tameka Dickey CALIBRATION TESTER.BOMB LOADER Work Phone: [facility] Encounters Encounter Date Encounter Type Care Provider Facility Start: 02-26-2025 End: 02-26-2025 Patient encounter procedure [facility]/Gynecology Start: 02-26-2025 End: 02-26-2025 ambulatory Grain [employer]icker [facility] Work Phone: OB/Gynecology Start: 02-26-2025 End: 02-26-2025 Subsequent hospital visit by physician Screen Mammo [facility] Comment on above: Encounter for screen ing mammogram for breast cancer [Z12.31] Start: 02-12-2025 End: 02-12-[address] Tutu Quintero DPM Work Phone: [facility] Work Phone: Start: 02-12-2025 End: 02-12-[address] Ayleen Flaherty MD -[facility] Work Phone: Start: 02-12-2025 End: 02-12-2025 ambulatory No Primary Care Physician Facility:[facility] Start: 01-22-2025 End: 03-03-2025 Follow-up encounter Tameka Dickey BOMB LOADER Work Phone: OB/Gynecology Comment on above: Results Start: 01-15-2025 End: 01-15-2025 Patient encounter procedure Tameka Dickey APRDinoBOMB LOADER Work Phone: OB/Gynecology Comment on above: Postmenopausal bleed ing (Primary Dx); Night sweats; Hot flashes; Pap smear for cervical cancer screening; Encounter for screening mammogram for breast cancer Start: 01-15-2025 End: 01-15-2025 ambulatory TAMEKA EDUARDOSTEVE Facility:[facility] Start: 01-04-2025 End: 01-04-[address] Tutu Quintero DPM Work Phone: [facility] Work Phone: Start: 01-04-2025 End: 01-04-[address] Tutu Quintero DPM -Ultrasound, [facility] Work Phone: Start: 01-04-2025 End: 01-04-2025 ambulatory Tutu Quintero Facility:[facility] Procedures Date Procedure Procedure Detail Performing Clinician Start: 02-26-2025 Us pelvic nonobstetr ic real-time image complete Tameka Blanchardsteve GAXIOLABOMB LOADER Work Phone: Start: 02-12-[address] Carlos Quintero DPM Work Phone: Comment on above: Performed at: [address] [id number] Director: Boom Narayanan PhD, Phone: [phone] Start: 02-12-2025 Hep[address] C antibody measurement Dr. Tutu Quintero DPM Work Phone: Comment on above: Reactive: Presumptiv e evidence of antibodies to HCV. Follow CDC recommendations for supplemental testing.Non-Reactive: Antibodies to HCV were not detected; does not exclude the possibility of exposure to HCVReactive Results are presumptive evidence of antibodies to HCV. Follow CDC recommendations for supplemental testing.Order confirmation testing: HCV Quant by PCR testing - HCVPCR #[id number] Non Reactive: < 0.8 Equivocal: >/= 0.8 to < 1.0 Reactive: >/= 1.0The CDC requires that a reactive/equivocal HCV antibody result be sent out for confirmation. HCV Quant by PCR testing. Start: 01-04-2025 End: 01-04-[address] Tutu acosta DPM Work Phone: Plan of Treatment Date Care Activity Detail Author Start: 01-15-2030 Screening for malign ant neoplasm of cervix Cervical Cancer Screening [facility] Start: 01-17-2026 End: 01-17-2026 Patient encounter procedure 01/17/2026 10:15 AM EDT Office Visit OB/Gynecology [address] [place] [address] Tameka Dickey APRN.BOMB LOADER [address] [place] [address] Annual OB/Gynecology Comment on above: Annual Start: 05-03-2025 Influenza vaccination C [facility] Start: 02-26-2025 End: 02-26-2025 ambulatory 02/26/2025 10:00 AM EDT Procedure OB/Gynecology [address] [place] [address] Remote, [employer] [address] [place] [address] Postmenopausal bleeding [N95.0] OB/Gynecology Comment on above: Postmenopausal bleed ing [N95.0] Start: 02-26-2025 End: 02-26-2025 Patient encounter procedure 02/26/2025 9:30 AM EDT Appointment Mammogram [address] [place] [address] Encounter for screening mammogram for breast cancer [Z12.31] Mammogram Comment on above: Encounter for screen ing mammogram for breast cancer [Z12.31] Start: 01-15-2025 End: 01-15-2026 US Pelvis PELVIC US [facility] Anc Imaging Routine Postmenopausal bleeding Expected: 01/15/2025, Expires: 01/15/2026 [facility] Comment on above: Expected: 01/15/2025 , Expires: 01/15/2026 Start: 05-03-2024 Covid-19 Vaccine () Covid-19 Vaccine ( season) [facility] Start: 2016 Pneumococcal Vaccine : 50+ (1 of 1 - PCV) Pneumococcal Vaccine: 50+ (1 of 1 - PCV) [facility] Start: 2016 Shingrix Vaccine (1 of 2) Shingrix Vaccine (1 of 2) [facility] Start: 11-12-2011 Diabetes Screening Diabetes Screenin g [facility] Start: 11-12-2011 Lipid panel Lipid Screening [facility] Start: 11-12-2011 Screening for malign ant neoplasm of colon [facility] Start: 2006 Screening for malign ant neoplasm of breast Mammogram Screening [facility] Start: 11-12-1987 Screening for malign ant neoplasm of cervix Cervical Cancer Screening [facility] Start: 1985 Hepatitis B Vaccine (1 of 3 - 19+ 3-dose series) Hepatitis B Vaccine (1 of 3 - 19+ 3-dose series) [facility] Start: 1985 Urine microalbumin profile DTaP,Tdap,Td Vaccine (1 - Tdap) [facility] Start: 1984 Anxiety Screening Anxiety Screening [facility] Start: 1984 Depression Screening Depression Scre ening [facility] Start: 1984 Hepatitis C screening Hepatitis C Sc reening [facility] Start: 1984 HIV screening HIV Screening [facility] End: 02-14-2026 DBT Breast - bilateral screening LESLY SCREENING [facility] Radiology Routine Encounter for screening mammogram for breast cancer 1 Occurrences starting 01/15/2025 until 02/14/2026 [facility] Work Phone: Comment on above: 1 Occurrences starti ng 01/15/2025 until 02/14/2026 DBT Breast - bilater al screening LESLY SCREENING [facility] Radiology Routine Encounter for screening mammogram for breast cancer 02/26/2025 9:37 AM EDT [facility] Work Phone: Endometrial bx w/wo endocervix bx w/o dilat spx ENDOMETRIAL BIOPSY Procedures Routine Postmenopausal bleeding Ordered: 03/03/2025 [facility] Work Phone: Comment on above: Ordered: 03/03/2025 PAP TEST PAP TEST Lab Bushra philippe Pap smear for cervical cancer screening 01/15/2025 9:59 AM EDT [facility] Payers Date Payer Category Payer Self-pay 2024 [facility] [id number] 2024 Unknown [id number] Unknown [id number] Unknown [id number] Social History Date Type Detail [facility] Work Phone: Start: 1965 Sex Assigned At Female [facility] Start: 01-15-2025 Tobacco smoking stat [facility] Never smoked tobacco [facility] Start: 01-15-2025 Tobacco use and exposure Smokeless tobacco non-user [facility] Start: 01-15-2025 Alcoholic beverage intake Current drinker of alcohol (finding) [facility] Start: 01-15-2025 History of Social function [facility] Start: 01-15-2025 Tobacco use panel [facility] National Score (1-10 0), lower number is lower risk 35 [facility] Start: 01-07-2025 Gender identity Identifies as female gender (finding) [facility] Start: 01-07-2025 Sexual orientation Heterosexual (fin ding) [facility] Clinical Notes 01-05-2025 to 03-03-2025 Telephone Encounter - Theresa Carr RN - 03/03/2025 12:26 PM EDTTelephone Encounter - Theresa Carr RN - 03/03/2025 12:26 PM Juanis Gimenez MD - 03/01/2025 10:42 PM EDT Note Date & Type Note Facility 03-03-2025 Telephone encount er Note Patient notified of results, verbalizes understanding of instructions. Patient declines scheduling EMB at this time, states she will call back to schedule after talking with insurance. Theresa Carr RN [facility] 03-03-2025 Miscellaneous Notes Formattin g of this note might be different from the original. Patient notified of results, verbalizes understanding of instructions. Patient declines scheduling EMB at this time, states she will call back to schedule after talking with insurance. Theresa Carr RN Please call patient - I've reviewed ultrasound. Lining is normal. Small fibroid noted. Would recommend EMB for postmenopausal bleeding. Please assist in scheduling. Tameka Dickey APRN.SANDRA documented in this encounter [facility] 03-03-2025 Telephone encount er Note Please call patient - I've reviewed ultrasound. Lining is normal. Small fibroid noted. Would recommend EMB for postmenopausal bleeding. Please assist in scheduling. Tameka Dickey APRN.CNP [facility] 03-01-2025 Note HNO ID: [id number] Author: JUANIS AN MD Service: ? Author Type: Physician Type: Progress Notes Filed: 03/01/2025 22:44 Note Text: Billie Brunson is a 59 year old female who presented for clerk stenographer ultrasound today. Encounter Diagnosis ICD-10-CM 1. Postmenopausal bleeding N95.0 Please see report under imaging tab. Juanis An MD March 01, 2025 10:42 PM [facility] 03-01-2025 History of Presen t illness Narrative Billie Brunson is a 59 year old female who presented for clerk stenographer ultrasound today. Encounter Diagnosis ICD-10-CM 1. Postmenopausal bleeding N95.0 Please see report under imaging tab. Juanis An MD March 01, 2025 10:42 PM documented in this encounter [facility] 02-26-2025 History of Presen t illness Narrative Radiology Service Progress Note PATIENT NAME: Billie Brunson DATE OF SERVICE: February 26, 2025 TIME: 11:21 AM PATIENT IDENTITY VERIFICATION COMPLETED USING TWO (2) IDENTIFIERS: Name and Date of confirmed by patient verbally. FALL SCREENING: Has the patient had 2 falls in the last year or 1 fall with injury or currently using an Ambulatory Assistive Device (Walker, Cane, Wheelchair, Crutches, etc.)? No PATIENT GENDER DATA: Assigned female at . status: : No status: NO. PATIENT RELEVANT IMPLANT DATA REVIEWED: Not Applicable PATIENT PRESENTS WITH AN IMPLANTABLE OR ATTACHED IMPRESSION PRINTER: No RADIOLOGY DEPARTMENT: Mammography PERIPHERAL IV DATA: Not applicable SIGNED BY: Daniela Sharma February 26, 2025 11:21 AM documented in this encounter [facility] 02-26-2025 Note HNO ID: [id number] Author: VINICIUS MIRAMONTES Mammo Tech Service: ? Author Type: Neon Sign Erector Type: Progress Notes Filed: 02/26/2025 11:21 Note Text: Radiology Service Progress Note PATIENT NAME: Billie Brunson DATE OF SERVICE: February 26, 2025 TIME: 11:21 AM PATIENT IDENTITY VERIFICATION COMPLETED USING TWO (2) IDENTIFIERS: Name and Date of confirmed by patient verbally. FALL SCREENING: Has the patient had 2 falls in the last year or 1 fall with injury or currently using an Ambulatory Assistive Device (Walker, Cane, Wheelchair, Crutches, etc.)? No PATIENT GENDER DATA: Assigned female at . status: : No status: NO. PATIENT RELEVANT IMPLANT DATA REVIEWED: Not Applicable PATIENT PRESENTS WITH AN IMPLANTABLE OR ATTACHED IMPRESSION PRINTER: No RADIOLOGY DEPARTMENT: Mammography PERIPHERAL IV DATA: Not applicable SIGNED BY: Viniciuschinedu Miramontes [facility] February 26, 2025 11:21 AM [facility] 01-15-2025 Note HNO ID: [id number] Author: TAMEKA DICKEY APRN.BOMB LOADER Service: ? Author Type: Nurse Practitioner Type: Progress Notes Filed: 01/15/2025 09:56 Note Text: Die Casting Supervisor offered: Patient declines. Billie Brunson is a 59 year old female who presents for problem visit of postmenopausal bleeding. Recently relocated from [place]. Has 3 year old and 9 year old grand daughters. HPI: Sammi had postmenopausal bleeding December 05-. Bleeding was light, but more than spotting. Denies pelvic pain. Chronic back pain. LMP April 2023. Has done pellet therapy in the past. Stopped using it May 2024. Was on progesterone during this. Experiences hot flashes and night sweats, as well as low energy. Night sweats are coming back, but not as severe as they were. OB History Gravida3 Para2 Term0 Preterm0 AB1 Living2 SAB0 IAB0 Ectopic0 Multiple0 Live Births0 Operations Examiner History LMP: 04/19/2023, Postmenopausal Age at Menarche: 16 Age at First : Age at Menopause: Operations Examiner History Comments: Sexual Activity: Yes; Male Contraception: Vasectomy History reviewed. No pertinent past medical history. History reviewed. No pertinent surgical history. FAMILY HISTORY Problem Relation Age of Onset Lung Cancer Mother Heart Attack Father No Known Problems Sister Heart Attack Brother Pancreatic Cancer Brother Colon Cancer Maternal Grandmother 60 Cancer Maternal Grandfather No Known Problems Paternal Grandmother Emphysema Paternal Grandfather Social History Tobacco Use Smoking status: Never Smokeless tobacco: Never Vaping Use Vaping status: Never Used Substance Use Topics Alcohol use: Yes Drug use: Never Current Outpatient Medications Medication Sig omega-3s/dha/epa/fish oil (OMEGA 3 ORAL) Take 1,200 mg by mouth once daily. cholecalciferol, vitD3,/vit K2 (VITAMIN D3-VITAMIN K2 ORAL) Take by mouth. thiamine HCl (VITAMIN B-1 ORAL) Take 250 mg by mouth. pyridoxine HCl, vitamin B6, (VITAMIN B-6 ORAL) Take by mouth. MAGNESIUM GLYCINATE ORAL Take by mouth. SELENIUM ORAL Take by mouth. OTC PRODUCT Tumeric/curcumin IBUPROFEN ORAL Take by mouth. No current facility-administered medications for this visit. Allergies As of Date: 01/15/2025 Allergen Noted Reaction CODEINE 01/15/2025 Other: See Comments Fully Assessed 01/15/2025 REVIEW OF SYSTEMS Expanded ROS: MEDICAL BILLER/CODER: + postmenopausal bleeding Allergies and current medication updated:Yes SENSITIVE EXAM: The sensitive examination was discussed with the Patient or Patient's Authorized Director Revenue. As applicable, any other physician, advance practice provider, medical student, or other health professional student that will be observing or involved in the sensitive examination for educational or training purposes was discussed with the Patient or Authorized Director Revenue. The Patient or Authorized Director Revenue has agreed to proceed with the sensitive examination. (Sensitive examination includes inspection and/or palpation of the breasts, pelvis, prostate and anorectal regions). EXAM: BP 128/70 Ht 5' 8.11 (1.73m) Wt 164 lb (74.4kg) LMP 04/19/2023 BMI 24.86 kg/(m2). GENERAL: pleasant, female in no apparent distress HEENT: Normocephalic, atraumatic, mucus membranes moist, and no lesions CHEST: Normal inspiratory effort PELVIC: external genitalia normal, normal Bartholin's glands, urethra, Cle Elum's glands, no vulvar lesions, no cervical lesions, good vaginal support, physiologic discharge present, normal appearing perineal body and perianal region BIMANUAL: uterus normal size, shape and consistency, no adnexal masses, and non-tender NEURO: alert and oriented x3,exam grossly non-focal EXTREMITIES: normal ASSESSMENT AND PLAN: 1. Postmenopausal bleeding - ICD9: 627.1, ICD10: N95.0 (primary diagnosis) - Pap done - Recommend pelvic ultrasound - Plan for EMB 2. Night sweats - ICD9: 780.8, ICD10: R61 3. Hot flashes - ICD9: 782.62, ICD10: R23.2 - Consider HRT if workup for postmenopausal bleeding is negative 4. Pap smear for cervical cancer screening - ICD9: V76.2, ICD10: Z12.4 - Pap done 5. Encounter for screening mammogram for breast cancer - ICD9: V76.12, ICD10: Z12.31 - LESLY SCREENING W VIOLA Dickey APRN.SANDRA I spent a total of 30 minutes on the date of the service which included preparing to see the patient, [id number] patient care, completing clinical documentation, obtaining and/or reviewing separately obtained history, performing a medically appropriate examination, counseling and educating the patient/family/caregiver, and ordering medications, tests, or procedures. [facility] 01-15-2025 History of Presen t illness Narrative Die Casting Supervisor offered: Patient declines. Billie Brunson is a 59 year old female who presents for problem visit of postmenopausal bleeding. Recently relocated from [place]. Has 3 year old and 9 year old grand daughters. HPI: Sammi had postmenopausal bleeding December 05-. Bleeding was light, but more than spotting. Denies pelvic pain. Chronic back pain. LMP April 2023. Has done pellet therapy in the past. Stopped using it May 2024. Was on progesterone during this. Experiences hot flashes and night sweats, as well as low energy. Night sweats are coming back, but not as severe as they were. OB History Gravida3 Para2 Term0 Preterm0 AB1 Living2 SAB0 IAB0 Ectopic0 Multiple0 Live Births0 Operations Examiner History LMP: 04/19/2023, Postmenopausal Age at Menarche: 16 Age at First : Age at Menopause: Operations Examiner History Comments: Sexual Activity: Yes; Male Contraception: Vasectomy History reviewed. No pertinent past medical history. History reviewed. No pertinent surgical history. FAMILY HISTORY Problem Relation Age of Onset Lung Cancer Mother Heart Attack Father No Known Problems Sister Heart Attack Brother Pancreatic Cancer Brother Colon Cancer Maternal Grandmother 60 Cancer Maternal Grandfather No Known Problems Paternal Grandmother Emphysema Paternal Grandfather Social History Tobacco Use Smoking status: Never Smokeless tobacco: Never Vaping Use Vaping status: Never Used Substance Use Topics Alcohol use: Yes Drug use: Never Current Outpatient Medications Medication Sig omega-3s/dha/epa/fish oil (OMEGA 3 ORAL) Take 1,200 mg by mouth once daily. cholecalciferol, vitD3,/vit K2 (VITAMIN D3-VITAMIN K2 ORAL) Take by mouth. thiamine HCl (VITAMIN B-1 ORAL) Take 250 mg by mouth. pyridoxine HCl, vitamin B6, (VITAMIN B-6 ORAL) Take by mouth. MAGNESIUM GLYCINATE ORAL Take by mouth. SELENIUM ORAL Take by mouth. OTC PRODUCT Tumeric/curcumin IBUPROFEN ORAL Take by mouth. No current facility-administered medications for this visit. Allergies As of Date: 01/15/2025 Allergen Noted Reaction CODEINE 01/15/2025 Other: See Comments Fully Assessed 01/15/2025 REVIEW OF SYSTEMS Expanded ROS: MEDICAL BILLER/CODER: + postmenopausal bleeding Allergies and current medication updated:Yes SENSITIVE EXAM: The sensitive examination was discussed with the Patient or Patient's Authorized Director Revenue. As applicable, any other physician, advance practice provider, medical student, or other health professional student that will be observing or involved in the sensitive examination for educational or training purposes was discussed with the Patient or Authorized Director Revenue. The Patient or Authorized Director Revenue has agreed to proceed with the sensitive examination. (Sensitive examination includes inspection and/or palpation of the breasts, pelvis, prostate and anorectal regions). EXAM: BP 128/70 Ht 5' 8.11 (1.73m) Wt 164 lb (74.4kg) LMP 04/19/2023 BMI 24.86 kg/(m^2). GENERAL: pleasant, female in no apparent distress HEENT: Normocephalic, atraumatic, mucus membranes moist, and no lesions CHEST: Normal inspiratory effort PELVIC: external genitalia normal, normal Bartholin's glands, urethra, Cle Elum's glands, no vulvar lesions, no cervical lesions, good vaginal support, physiologic discharge present, normal appearing perineal body and perianal region BIMANUAL: uterus normal size, shape and consistency, no adnexal masses, and non-tender NEURO: alert and oriented x3,exam grossly non-focal EXTREMITIES: normal ASSESSMENT AND PLAN: 1. Postmenopausal bleeding - ICD9: 627.1, ICD10: N95.0 (primary diagnosis) - Pap done - Recommend pelvic ultrasound - Plan for EMB 2. Night sweats - ICD9: 780.8, ICD10: R61 3. Hot flashes - ICD9: 782.62, ICD10: R23.2 - Consider HRT if workup for postmenopausal bleeding is negative 4. Pap smear for cervical cancer screening - ICD9: V76.2, ICD10: Z12.4 - Pap done 5. Encounter for screening mammogram for breast cancer - ICD9: V76.12, ICD10: Z12.31 - LESLY SCREENING W VIOLA Dickey APRN.SANDRA I spent a total of 30 minutes on the date of the service which included preparing to see the patient, [id number] patient care, completing clinical documentation, obtaining and/or reviewing separately obtained history, performing a medically appropriate examination, counseling and educating the patient/family/caregiver, and ordering medications, tests, or procedures. documented in this encounter [facility] 01-05-2025 Radiology Diagnostic study note [facility] Imaging Services [address] [place] [address] Ext Non Vasc Limited/Soft Tiss MR#: [id number] Acct: [id number] Name: BILLIE MENDENHALL Rep #: [id number] : 1965 F [id number] From: Rodger Sellers MD PCP: Care Physician,No Primary Status: REG CLI Study:Ext Non Vasc Limited/Soft Tiss Date of Exam: 01/04/25 Exam# [id number] Ordering Dr: Carlos Quintero DPM PROCEDURE: EXT NON VASC LIMITED/SOFT TISS 01/04/2025 REASON FOR EXAM: PAIN LT AND RT FOOT, NEUROMA RT ANAD LT TECHNIQUE: Ultrasound targeted to the palpable abnormality at the plantar surface of the left foot. COMPARISON: None. FINDINGS: Targeted sonogram of the plantar surface of the left foot was performed. No palpable lump was reported per the research program manager. No abnormal cystic or solid lesions are seen within the visualized (in the area of concern) on the plantar surface of the left foot. US/Ext Non Vasc Limited/Soft Tiss IMPRESSION: Targeted sonogram of the plantar surface of the left foot was performed. No palpable lump was reported per the research program manager. No abnormal cystic or solid lesions are seen within the visualized (in the area of concern) on the plantar surface of the left foot. Reading Location: [id number] CC: DPNatalia Quintero; No Primary Care Physician ~ Poultry Picking Machine Tender: Signed [facility] 01-05-2025 Radiology Diagnostic study note [facility] Imaging Services [address] [place] [address] Ext Non Vasc Limited/Soft Tiss MR#: [id number] Acct: [id number] Name: BILLIE MENDENHALL Rep #: [id number] : 1965 F [id number] From: Rodger Sellers MD PCP: Care Physician,No Primary Status: REG CLI Study:Ext Non Vasc Limited/Soft Tiss Date of Exam: 01/04/25 Exam# [id number] Ordering Dr: Carlos Quintero DPM PROCEDURE: EXT NON VASC LIMITED/SOFT TISS 01/04/2025 REASON FOR EXAM: PAIN LT AND RT FOOT, NEUROMA RT ANAD LT TECHNIQUE: Ultrasound targeted to the palpable abnormality at the plantar surface of the right foot . COMPARISON: None. FINDINGS: Limited sonogram of the plantar surface of the right foot was performed. No abnormal solid or cystic structure is seen within the visualized area. No definitive palpable lump was reported by the ultrasoundtechnologist. US/Ext Non Vasc Limited/Soft Tiss IMPRESSION: Limited sonogram of the plantar surface of the right foot was performed. No abnormal solid or cystic structure is seen within the visualized area. No definitive palpable lump was reported by the cardiovascular radiologic technologist. Reading Location: [id number] CC: BROOKS Quintero; No Primary Care Physician ~ Poultry Picking Machine Tender: Signed [facility] Evaluation note No assessment inform ation available [facility] Work Phone: Evaluation note Diagnosis Postmenopausal bleeding- Primary Night sweats Generalized hyperhidrosis Hot flashes Symptomatic menopausal or female climacteric states Pap smear for cervical cancer screening Screening for malignant neoplasm of the cervix Encounter for screening mammogram for breast cancer [facility] Encounter for screening mammogram for breast cancer [facility] Post[facility] Post[facility] bleeding- Primary [facility] (narrative)No reason for referral information [facility] Work Phone: Reason for visit Narrative* Diagnostic Procedure Only (Routine) - Closed Specialty Diagnoses / Procedures Referred By Keisha dalal Referred To Contact [facility] Diagnoses Encounter for screening mammogram for breast cancer Procedures LESLY SCREENING W VIOLA SCREENING DIGITAL BREAST TOMOSYNTHESIS BI SCREENING MAMMOGRAPHY BI 2-VIEW BREAST INC CAD Tameka Dickey APRN.BOMB LOADER [address] [place] [address] Phone: tel: fax: [facility] [address] [place] [address] Referral ID Status Reason Start Date Expiration Date V isits Requested Visits Authorized [id number] Closed Auto-Generate d Referral OON/Self Pay Override 01/15/2025 02/14/2026 1 1 [facility] Diagnostic Procedure Only (Routine) - Closed Specialty Diagnoses / Procedures Referred By Keisha dalal Referred To Contact [facility] Diagnoses Postmenopausal bleeding Procedures PELVIC US WHI US PELVIC NONOBSTETRIC REAL-TIME IMAGE COMPLETE Tameka Dickey APRN.CNP [address] [place] [address] Phone: tel: fax: [facility] [address] [place] [address] Referral ID Status Reason Start Date Expiration Date V isits Requested Visits Authorized [id number] Closed Auto-Generate d Referral OON/Self Pay Override 01/15/2025 01/15/2026 1 1 [facility] Chief Complaint and Reason for Visit Chief Complaint Admit Date PAIN, LT & RT FOOT, NEUROMA RT AND LT Ma y 2024 2:12pm Chief Complaint Admit Date PAIN, LT & RT FOOT, NEUROMA RT AND LT Ma y 2024 2:12pm PAIN- COPY PCP February 12, 2025 3:06 pm Summary Purpose Family History No Family History Records FoundNo Family History Records Found Advance Directives No Advanced Directives Records FoundNo Advanced Directives Records Found Additional Source Comments Care Teams (unrecognized sec tion and content) Team Status: Active Member Role Status Dates No Primary Care Physician Primary Care Provider Active Team Status: Inactive Member Role Status Dates Dr. Tutu Quintero DPM Attending Provider Active Start: January 04, 2025 End: January 04, 2025 Dr. Tutu Quintero DPM Referring Provider Active Start: January 04, 2025 End: January 04, 2025 No Primary Care Physician Primary Care Provider Active Start: January 04, 2025 End: January 04, 2025 Team Status: Inactive Member Role Status Dates No Primary Care Physician Primary Care Provider Active Start: February 12, 2025 End: February 12, 2025 Dr. Ayleen Flaherty MD Attending Provider Active Start: February 12, 2025 End: February 12, 2025 Dr. Ayleen Flaherty MD Referring Provider Active Start: February 12, 2025 End: February 12, 2025 Goals (unrecognized section and content) Goals may be documented in a n alternate sectionGoals may be documented in an alternate section Source Comments (unrecognize d section and content) In the event this informatio n is protected by the Federal Confidentiality of Alcohol and Drug Abuse Patient Records regulations: The Federal rules restrict any use of the information to criminally investigate or prosecute any alcohol or drug abuse patient.[facility] the event this information is protected by the Federal Confidentiality of Alcohol and Drug Abuse Patient Records regulations: The Federal rules restrict any use of the information to criminally investigate or prosecute any alcohol or drug abuse patient.[facility] the event this information is protected by the Federal Confidentiality of Alcohol and Drug Abuse Patient Records regulations: The Federal rules restrict any use of the information to criminally investigate or prosecute any alcohol or drug abuse patient.[facility] the event this information is protected by the Federal Confidentiality of Alcohol and Drug Abuse Patient Records regulations: The Federal rules restrict any use of the information to criminally investigate or prosecute any alcohol or drug abuse patient.[facility] Reason for Visit (unrecogniz ed section and content) Reason Comments [facility] Reason Onset Date Comments Results 01/22/2025 INFORMATION SOURCE (unrecogn ized section and content) DATE CREATED AUTHOR 02/25/2025 [facility] DATE CREATED AUTHOR AUTHOR'S ORGANIZ ATION 03/22/2025 [facility] FOR RECORDS PERTAINING TO PATIENTS WHO ARE OR HAVE BEEN ENROLLED IN A CHEMICAL DEPENDENCY/SUBSTANCEABUSE PROGRAM, SOME INFORMATION MAY BE OMITTED. This clinical summary was aggregated from multiple sources. Caution should be exercised in using it in the provision of clinical care. This summary normalizes information from multiple sources, and as a consequence, information in this document may materially change the coding, format and clinical context of patient data. In addition, data may be omitted in some cases. CLINICAL DECISIONS SHOULD BE BASED ON THE PRIMARY CLINICAL RECORDS. [facility]. provides no warranty or guarantee of the accuracy or completeness of information in this document.
[2025-04-30 18:23] LABS: AST(SGOT) 20 U/L (<=31); Alanine Aminotransfer ALT/SGPT 18 U/L (<=34); Albumin, Serum 4.6 g/dL (3.5-5.0); Alkaline Phosphatase 66 U/L (35-104); Anion Gap 13 (5-15); BUN 19 mg/dL (4-19); BUN/Creat Ratio 22.9 RATIO (10-20); Calcium,Total 9.6 mg/dL (7.6-11.0); Carbon Dioxide 23.4 mmol/L (21.0-32.0); Chloride 102 mmol/L (98-108); Globulin 2.8 g/dL (2.2-4.2); Glucose 89 mg/dL (70-99); Potassium 4.0 mmol/L (3.3-5.1)
== END | disposition home or self-care (01) ==
PROVIDERS: Referring Provider Internal Medicine Rheumatology; Visit Provider Internal Medicine Rheumatology
DX: M05.79 Rheumatoid arthritis with rheumatoid factor of multiple sites without organ or systems involvement (principal); Z79.899 Other long term (current) drug therapy; H93.13 Tinnitus, bilateral
CPT/HCPCS: 36415; 80053; 85025

== ENCOUNTER → 2025-06-11 | Outpatient (CLI) | payer BC, SELFPAY ==
[2025-06-11 18:54] LABS: AST(SGOT) 20 U/L (<=31); Alanine Aminotransfer ALT/SGPT 17 U/L (<=34); Albumin, Serum 4.7 g/dL (3.5-5.0); Alkaline Phosphatase 65 U/L (35-104); Anion Gap 13 (5-15); BUN 13 mg/dL (4-19); BUN/Creat Ratio 17.3 RATIO (10-20); Calcium,Total 10.1 mg/dL (7.6-11.0); Carbon Dioxide 25.7 mmol/L (21.0-32.0); Chloride 102 mmol/L (98-108); Cholesterol 203 mg/dL (<=200); Globulin 2.8 g/dL (2.2-4.2); Glucose 102 mg/dL (70-99); Low Density Lipoprotein Calc. 123 mg/dL; Potassium 3.8 mmol/L (3.3-5.1); Triglycerides 136 mg/dL; Very Low Density Lipoprotein 27 mg/dL (5-40); cholesterol:hdl ratio screen 3.87
[2025-06-11 18:57] LABS: Hematocrit 39.2 % (37-47); Hemoglobin 13.5 g/dL (12.0-15.0); Immature Granulocytes Count 0.010 X10^3/uL (0.0-0.0); Mean Corp Hgb Conc 34.4 g/dL (32-36); Mean Corpuscular Volume 88.9 fL (81-99); Mean Platelet Vol. 10.3 fl (6.2-12.0); NRBC Flagged by Analyzer 0 % (0-5); Platelet Count 272 K/mm3 (150-450); RBC Distribution Width CV 13.4 % (11.6-14.6); RBC Distribution Width SD 43.3 fl (35.1-43.9); Red Blood Count 4.41 M/mm3 (4.2-5.4); White Blood Count 5.4 K/mm3 (4.4-11.0)
== END | disposition home or self-care (01) ==
LOC: MTLAB 16:01
PROVIDERS: PCP Internal Medicine; Referring Provider Internal Medicine; Visit Provider Internal Medicine
DX: M05.79 Rheumatoid arthritis with rheumatoid factor of multiple sites without organ or systems involvement (principal); H93.13 Tinnitus, bilateral; Z79.899 Other long term (current) drug therapy; R73.9 Hyperglycemia, unspecified; E78.5 Hyperlipidemia, unspecified
CPT/HCPCS: 36415; 80053; 80061; 83036; 85025

== ENCOUNTER → 2025-08-19 | Outpatient (CLI) | payer BC, SELFPAY ==
[2025-08-19 18:05] LABS: Hematocrit 37.9 % (37-47); Hemoglobin 12.9 g/dL (12.0-15.0); Immature Granulocytes Count 0.010 X10^3/uL (0.0-0.0); Mean Corp Hgb Conc 34.0 g/dL (32-36); Mean Corpuscular Volume 91.1 fL (81-99); Mean Platelet Vol. 10.2 fl (6.2-12.0); NRBC Flagged by Analyzer 0 % (0-5); Platelet Count 278 K/mm3 (150-450); RBC Distribution Width CV 12.9 % (11.6-14.6); RBC Distribution Width SD 42.4 fl (35.1-43.9); Red Blood Count 4.16 M/mm3 (4.2-5.4); White Blood Count 7.9 K/mm3 (4.4-11.0)
[2025-08-19 18:11] LABS: AST(SGOT) 19 U/L (<=31); Alanine Aminotransfer ALT/SGPT 16 U/L (<=34); Albumin, Serum 4.5 g/dL (3.5-5.0); Alkaline Phosphatase 64 U/L (35-104); Anion Gap 13 (5-15); BUN 17 mg/dL (4-19); BUN/Creat Ratio 20.0 RATIO (10-20); Calcium,Total 9.8 mg/dL (7.6-11.0); Carbon Dioxide 22.7 mmol/L (21.0-32.0); Chloride 105 mmol/L (98-108); Globulin 2.5 g/dL (2.2-4.2); Glucose 103 mg/dL (70-99); Potassium 3.9 mmol/L (3.3-5.1)
== END | disposition home or self-care (01) ==
LOC: MTLAB 15:27
PROVIDERS: PCP Internal Medicine; Referring Provider Internal Medicine Rheumatology; Visit Provider Internal Medicine Rheumatology
DX: M05.79 Rheumatoid arthritis with rheumatoid factor of multiple sites without organ or systems involvement (principal); Z79.899 Other long term (current) drug therapy; H93.13 Tinnitus, bilateral
CPT/HCPCS: 36415; 80053; 85025